=== PATIENT | male | born 1950 | race Caucasian/White ===

== ENCOUNTER → 2023-04-15 11:32 | Outpatient (REF) | payer MEDICARE, SELFPAY | LOC: PAVMRI 11:32 | PROVIDERS: ATTENDING PHYSICIAN Internal Medicine Gastroenterology; FAMILY PHYSICIAN Family Medicine | DX: K86.2 Cyst of pancreas (principal) | CPT/HCPCS: 74183; A9575 ==

== ENCOUNTER → 2023-08-17 06:42 | Day surgery (SDC) | payer MEDICARE, SELFPAY ==
[2023-08-17 08:22] LABS: Glucose - Point of Care 130 mg/dl (70-99)
== END ==
LOC: GI 06:42
PROVIDERS: ATTENDING PHYSICIAN Internal Medicine Gastroenterology
DX: Z12.11 Encounter for screening for malignant neoplasm of colon (principal); D12.0 Benign neoplasm of cecum; D12.2 Benign neoplasm of ascending colon; D12.3 Benign neoplasm of transverse colon; K57.30 Diverticulosis of large intestine without perforation or abscess without bleeding
CPT/HCPCS: 45385; 88305; 82962